=== PATIENT | male | born 1975 | race African-American/Black ===

== ENCOUNTER 2021-09-24 18:11 | Emergency (ER) | payer SELFPAY ==
[~2021-09-24] VITALS: Ht 170.2 cm; Wt 68.0 kg
[2021-09-24] MEDS ORDERED: SODIUM CHLORIDE 0.9% 1000ML 1,000 ML IV SCH ×2 (18:30→19:45)
[2021-09-24] MEDS ORDERED: Morphine 4mg INJECTION 4 MG/ML INJ IV ONE (18:30)
[2021-09-24] MEDS ORDERED: SODIUM CHLORIDE 0.9% 1000ML 2,000 ML ONE (18:32)
[2021-09-24] MEDS ORDERED: LISINOPRIL2.5 MG PO (18:32)
[2021-09-24] MEDS ORDERED: Morphine 4mg INJECTION 4 MG/ML INJ ONE (18:54)
[2021-09-24 19:49] VITALS: BP 125/80
[2021-09-24] MEDS ORDERED: SODIUM CHLORIDE 0.9% 1000ML 1,000 ML ONE (19:49)
== END 2021-09-24 19:59 | disposition home or self-care (01) ==
LOC: FSED 18:25
DX: T67.5XXA Heat exhaustion, unspecified, initial encounter (principal); I10 Essential (primary) hypertension; R94.31 Abnormal electrocardiogram [ECG] [EKG]; F17.210 Nicotine dependence, cigarettes, uncomplicated
CPT/HCPCS: 80048; 80076; 81003; 85025; 93005; 96374; 99283; J2270; J7030